=== PATIENT | male | born 1975 | race Caucasian/White ===

== ENCOUNTER 2017-05-26 10:04 | Emergency (ER) | payer SELFPAY ==
[2017-05-26 10:34] LABS: #Basophils 0.1 thou/uL (0.0-0.2); #Eosinphils 0.1 thou/uL (0.0-0.7); #Lymphocytes 0.9 thou/uL (1.20-3.40); #Monocytes 0.6 thou/uL (0.11-0.59); %Basophils 1.1 % (0.0-1.0); %Lymphocytes 13.3 % (21.0-51.0); %Monocytes 9.3 % (0.0-10.0); %Neutrophils 74.3 % (42.0-75.0); Hemoglobin 18.9 g/dL (14.0-18.0); Mean Corpuscular HGB CONC 32.1 g/dL (32.0-36.0); Mean Corpuscular Hemoglobin 30.7 pg (27.0-31.0); Mean Corpuscular Volume 95.4 fl (80.0-94.0); Mean Platelet Volume 7.2 fL (7.4-10.4); Platelet Count 232 thou/uL (130-400); RBC Distribution Width 12.1 % (11.5-14.5); Red Blood Cell (RBC) Count 6.16 mill/uL (4.70-6.10); White Blood Cell (WBC) Count 6.7 thou/uL (4.8-10.8)
[2017-05-26 10:46] LABS: Base Excess-Venous 7.6 mmol/L (-30.0-30.0); Bicarbonate (HCO3v) 35.6 mmol/L (1.0-85.0); CO2 Tension (PvCO2) 56.9 mmHg (41.0-51.0); Calcium, Ionized 1.11 mmol/L (1.12-1.32); Hemoglobin - Calc 21.8 g/dL (12.0-18.0); O2 Tension (PvO2) 35.2 mmHg (35.0-45.0); Potassium 4.3 mmol/L (3.4-4.7); T. Carbon Dioxide 37.3 mmol/L (1.0-85.0); pH (Venous) 7.404 (7.35-7.45); vO2 Saturation-calc 65.9 % (0.0-100.0)
[2017-05-26 10:56] LABS: ALT (SGPT) 25 U/L (8-55); AST (SGOT) 21 U/L (5-34); Albumin 3.3 g/dL (3.5-5.0); Alkaline Phosphatase 133 U/L (40-150); Anion Gap 12 mmol/L (10-20); BUN (Urea Nitrogen) 5 mg/dL (8.9-20.6); Bilirubin, Total 0.7 mg/dL (0.2-1.2); CK (CPK) 50 U/L (30-200); Calc. Creatinine Clearance 0 mL/min (70-130); Calcium 8.8 mg/dL (7.8-10.44); Carbon Dioxide 31 mmol/L (22-29); Chloride 96 mmol/L (98-107); Estimated GFR-MDRD Greater than 90; Globulin 4.6 g/dL (2.4-3.5); Glucose 285 mg/dL (70-105); Lipase 39 U/L (8-78); Magnesium 1.7 mg/dL (1.6-2.6); Phosphorus 2.8 mg/dL (2.3-4.7); Potassium 4.5 mmol/L (3.5-5.1); Protein, Total 7.9 g/dL (6.0-8.3); Sodium 134 mmol/L (136-145)
[2017-05-26 11:05] LABS: CKMB 1.1 ng/mL (0-6.6); Troponin I 0.019 ng/mL (< 0.028)
[2017-05-26 11:28] LABS: Bilirubin Negative (Negative); Blood, Urine Negative (Negative); Clarity CLEAR (Clear); Glucose, Urine (Dipstick) 100 mg/dL (Negative); Leukocyte Negative (Negative); Nitrite Negative (Negative); Protein, Urine (Dipstick) 30 mg/dL (Neg-Trace); Specific Gravity, Urine 1.021 (1.002-1.036)
[2017-05-26 11:31] LABS: Bacteria/HPF None Seen HPF (None Seen); Hyaline Casts/LPF 0-3 HYALINE CAST LPF (0-3 Hyaline); RBC/HPF 0-3 HPF (0-3); Squamous Epithelial None Seen HPF (0-3); WBC/HPF 0-3 HPF (0-3)
== END 2017-05-26 11:53 | disposition home or self-care (01) ==
LOC: ERS 10:04
DX: E11.65 Type 2 diabetes mellitus with hyperglycemia (principal); F17.210 Nicotine dependence, cigarettes, uncomplicated; Z79.84 Long term (current) use of oral hypoglycemic drugs
CPT/HCPCS: 36415; 36416; 80053; 81003; 81015; 82010; 82330; 82553; 82803; 83690; 83735; 84100; 84484; 85025; 93005; 96360

== ENCOUNTER 2017-11-22 22:26 | Inpatient (IN) | payer SELFPAY ==
[~2017-11-22 22:26] MED LIST: ISOVUE-370 76%-LOCM 1 ML ONE
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
[2017-11-22 22:59] LABS: #Eosinphils 0.3 thou/uL (0.0-0.7); #Lymphocytes 2.4 thou/uL (1.20-3.40); #Monocytes 0.7 thou/uL (0.11-0.59); #Neutrophils 6.7 thou/uL (1.40-6.50); %Basophils 0.3 % (0.0-1.0); %Eosinophils 2.8 % (0.0-10.0); %Lymphocytes 23.6 % (21.0-51.0); %Monocytes 7.3 % (0.0-10.0); Hemoglobin 19.4 g/dL (14.0-18.0); Mean Corpuscular HGB CONC 33.4 g/dL (32.0-36.0); Mean Corpuscular Hemoglobin 31.5 pg (27.0-31.0); Mean Corpuscular Volume 94.4 fL (78.0-98.0); Mean Platelet Volume 6.7 fL (7.4-10.4); Platelet Count 251 thou/uL (130-400); RBC Distribution Width 12.8 % (11.5-14.5); Red Blood Cell (RBC) Count 6.17 mill/uL (4.70-6.10); White Blood Cell (WBC) Count 10.1 thou/uL (4.8-10.8)
[2017-11-22 23:20] LABS: ALT (SGPT) 48 U/L (8-55); AST (SGOT) 92 U/L (5-34); Albumin 3.5 g/dL (3.5-5.0); Alcohol 221 mg/dL (Less than 10); Alkaline Phosphatase 125 U/L (40-150); Anion Gap 17 mmol/L (10-20); BUN (Urea Nitrogen) 5 mg/dL (8.9-20.6); Bilirubin, Total 0.6 mg/dL (0.2-1.2); Calc. Creatinine Clearance 0 mL/min (70-130); Calcium 8.4 mg/dL (7.8-10.44); Carbon Dioxide 24 mmol/L (22-29); Chloride 97 mmol/L (98-107); Estimated GFR-MDRD Greater than 90; Globulin 4.7 g/dL (2.4-3.5); Glucose 215 mg/dL (70-105); Potassium 4.5 mmol/L (3.5-5.1); Protein, Total 8.2 g/dL (6.0-8.3); Sodium 133 mmol/L (136-145)
[2017-11-22 23:21] LABS: pH, Arterial 7.27 (7.35-7.45)
[2017-11-22 23:22] LABS: Base Excess (BEa) 0.5 mEq/L (-2.0 to +3.0); Hematocrit-ABG 63.5 % (42.0-52.0); Hemoglobin (Hb) 18.6 g/dL (14.0-18.0)
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
[2017-11-22 23:23] LABS: Analyzer IN Cardio ER; Calcium, Ionized 1.1 mmol/L (1.12-1.30); Puncture Site RRA
[2017-11-22] MEDS ORDERED: CEFAZOLIN/Water 2 GM/20 ML SYRINGE SLOW IVP SCH (23:30)
[2017-11-22 23:33] LABS: Bilirubin Negative (Negative); Blood, Urine Moderate (Negative); Clarity CLEAR (Clear); Glucose, Urine (Dipstick) Negative (Negative); Leukocyte Negative (Negative); Nitrite Negative (Negative); Protein, Urine (Dipstick) 300 mg/dL (Neg-Trace); Specific Gravity, Urine 1.017 (1.002-1.036); Urobilinogen 0.2 mg/dL (0.2-1.0)
[2017-11-22 23:34] LABS: Bacteria/HPF None Seen HPF (None Seen); Hyaline Casts/LPF 4-6 HYALINE CAST LPF (0-3 Hyaline); Pathc Cast-AUWi Flag 0.43 (0-2.49); RBC/HPF 0-3 HPF (0-3); Squamous Epithelial 0-3 HPF (0-3)
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
[2017-11-22 23:42] LABS: Renal Epithelial None Seen HPF (0-3); Transitional Epithelial NONE SEEN HPF (0-3)
[2017-11-22] MEDS ORDERED: Adacel (T-DAP) 0.5 ML VIAL ONE (23:43)
[2017-11-22] MEDS ORDERED: methylPREDNISolone Sod Succ/PF 125 MG/2 ML VIAL ONE (23:44)
[2017-11-23] MEDS ORDERED: HumaLOG 300 UNITS/3 ML VIAL SC PRN (00:08)
[2017-11-23] MEDS ORDERED: Ondansetron HCl/PF 4 MG/2 ML Vial IVP PRN (00:08)
[2017-11-23] MEDS ORDERED: Ondansetron ODT 4 MG TAB PO PRN (00:08)
[2017-11-23] MEDS ORDERED: Dextrose 5% in Water 1,000 ML IV PRN (00:08)
[2017-11-23] MEDS ORDERED: Dextrose 50% Abboject 50 ML SYRINGE SLOW IVP PRN (00:08)
[2017-11-23 00:18] LABS: Acetaminophen Less than 6.0 mcg/mL (10.0-30.0); Alcohol 221 mg/dL (Less than 10); Salicylate Less than 8.0 mg/dL (15.0-30.0)
[2017-11-23] MEDS ORDERED: Albuterol Sulfate 2.5 mg/3 ml Neb ONE ×4 (00:19→00:20)
[2017-11-23] MEDS ORDERED: Albuterol Sulfate 2.5 mg/0.5 ml Neb ONE ×2 (00:20)
[2017-11-23] MEDS ORDERED: Acetaminophen 500 MG TAB PO SCH (00:30)
[2017-11-23] MEDS ORDERED: cefTRIAXone\\ROCEPHIN 2 GM in Sodium Chloride 0.9% 100 ML IVPB SCH (01:00)
[2017-11-23 01:56] LABS: Actual Bicarbonate (HCO3a) 23.8 mEq/L (22-28); CO2 Tension 57.4 mmHg (35.0-45.0); O2 Tension (PaO2) 104.6 mmHg (80.0-100.0); pH, Arterial 7.23 (7.35-7.45)
[2017-11-23 01:57] LABS: Calcium, Ionized 1.1 mmol/L (1.12-1.30); Hemoglobin (Hb) 19.5 g/dL (14.0-18.0); Puncture Site LRA
[2017-11-23] MEDS: Sodium Chloride 0.9% 1,000 ML IV SCH ×4 (02:39→23:54)
[2017-11-23] MEDS: Oxazepam 10 MG CAP PO SCH ×2 (02:39→09:00)
[2017-11-23 05:29] LABS: #Basophils 0.1 thou/uL (0.0-0.2); #Lymphocytes 0.2 thou/uL (1.20-3.40); #Monocytes 0.2 thou/uL (0.11-0.59); #Neutrophils 9.7 thou/uL (1.40-6.50); %Basophils 0.8 % (0.0-1.0); %Eosinophils 0.1 % (0.0-10.0); %Lymphocytes 2.3 % (21.0-51.0); %Monocytes 1.9 % (0.0-10.0); %Neutrophils 94.9 % (42.0-75.0); Mean Corpuscular HGB CONC 31.7 g/dL (32.0-36.0); Mean Corpuscular Hemoglobin 30.1 pg (27.0-31.0); Mean Platelet Volume 6.8 fL (7.4-10.4); Platelet Count 203 thou/uL (130-400); Red Blood Cell (RBC) Count 5.97 mill/uL (4.70-6.10); White Blood Cell (WBC) Count 10.2 thou/uL (4.8-10.8)
[2017-11-23 05:57] LABS: Anion Gap 18 mmol/L (10-20); BUN (Urea Nitrogen) 5 mg/dL (8.9-20.6); Calc. Creatinine Clearance 215 mL/min (70-130); Calcium 8.1 mg/dL (7.8-10.44); Carbon Dioxide 22 mmol/L (22-29); Chloride 98 mmol/L (98-107); Estimated GFR-MDRD Greater than 90; Glucose 380 mg/dL (70-105); Potassium 4.1 mmol/L (3.5-5.1); Sodium 134 mmol/L (136-145)
[2017-11-23] MEDS: Acetaminophen 500 MG TAB PO SCH ×4 (06:16→23:55)
[2017-11-23] MEDS: Ketorolac Tromethamine 30 MG/ML VIAL IVP SCH ×4 (06:16→23:54)
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
[2017-11-23] MEDS ORDERED: CEFAZOLIN/Water 2 GM/20 ML SYRINGE SLOW IVP SCH (09:00)
[2017-11-23] MEDS: Multivit, Therapeutic 1 TAB PO SCH (09:00)
[2017-11-23] MEDS: Folic Acid 1 MG TAB PO SCH (09:00)
[2017-11-23] MEDS: Famotidine/PF 20 mg/2ml Vial SLOW IVP SCH ×3 (09:00→20:28)
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
[2017-11-23] MEDS ORDERED: Fentanyl 250 MCG/5 ML VIAL ONE (11:20)
[2017-11-23] MEDS ORDERED: Lidocaine 1% PF 5 ML VIAL ONE (12:46)
[2017-11-23] MEDS ORDERED: PROPOFOL 200 MG/20 ML VIAL ONE (12:46)
[2017-11-23] MEDS ORDERED: Ondansetron HCl/PF 4 MG/2 ML Vial ONE (12:46)
[2017-11-23 13:36] LABS: Actual Bicarbonate (HCO3a) 28.8 mEq/L (22-28); Base Excess (BEa) -0.9 mEq/L (-2.0 to +3.0); CO2 Tension 67.9 mmHg (35.0-45.0); Hemoglobin (Hb) 18.8 g/dL (14.0-18.0); O2 Tension (PaO2) 65.6 mmHg (80.0-100.0); pH, Arterial 7.25 (7.35-7.45)
[2017-11-23 13:37] LABS: Calcium, Ionized 1.1 mmol/L (1.12-1.30); Puncture Site LBA
[2017-11-23 13:38] LABS: ALV-art Gradient 206.025 (0-20)
[2017-11-23] MEDS ORDERED: Magnesium 2 GM/NS 0.9% 50 ML 2 GM in Premix Bag 1 BAG IVPB SCH (14:00)
[2017-11-23] MEDS ORDERED: Magnesium Sulfate 2 GM, Admixture Fee 1 EACH in Sodium Chloride 0.9% 100 ML IVPB SCH (14:00)
[2017-11-23] MEDS ORDERED: Albuterol Sulfate 2.5 mg/3 ml Neb NEB SCH (15:00)
[2017-11-23 15:03] LABS: Actual Bicarbonate (HCO3a) 30.3 mEq/L (22-28); Base Excess (BEa) -0.2 mEq/L (-2.0 to +3.0); CO2 Tension 73.6 mmHg (35.0-45.0); O2 Tension (PaO2) 74.8 mmHg (80.0-100.0); pH, Arterial 7.23 (7.35-7.45)
[2017-11-23 15:04] LABS: Calcium, Ionized 1.1 mmol/L (1.12-1.30); Hemoglobin (Hb) 18.4 g/dL (14.0-18.0); Puncture Site LRA
[2017-11-23] MEDS: HumaLOG 300 UNITS/3 ML VIAL SC PRN ×2 (15:08→19:40)
[2017-11-23] MEDS ORDERED: Propofol 1,000 MG/100 ML VIAL IV PRN (15:11)
[2017-11-23] MEDS ORDERED: Fentanyl 100 MCG/2 ML VIAL SLOW IVP PRN (15:12)
[2017-11-23] MEDS ORDERED: fentaNYL Citrate/PF 2,000 MCG in Sodium Chloride 0.9% 60 ML IV SCH (15:43)
[2017-11-23] MEDS ORDERED: Propofol BOLUS 1,000 MG/100 ML VIAL IV PRN (15:43)
[2017-11-23] MEDS ORDERED: Fentanyl BOLUS 250 ML IVPB PRN (15:43)
[2017-11-23] MEDS ORDERED: DISCONTINUE PREVIOUS NARCOTIC PAIN MEDICATIONS AND BENZODIAZEPINES FS SCH (15:43)
[2017-11-23] MEDS ORDERED: Lorazepam 2 MG/ML VIAL SLOW IVP PRN (15:43)
[2017-11-23] MEDS ORDERED: Furosemide 40 MG/4 ML VIAL SLOW IVP SCH (16:15)
[2017-11-23] MEDS: Propofol 1,000 MG/100 ML VIAL IV PRN ×3 (16:46→23:57)
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
[2017-11-23] MEDS: Mometasone/Formoterol 120 PUFF INHALER INH SCH (18:40)
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
[2017-11-23] MEDS: Insulin Glargine 10 UNITS in Pre-Filled Syringe 1 EACH SC SCH (20:28)
[2017-11-23] MEDS: CEFAZOLIN/Water 2 GM/20 ML SYRINGE SLOW IVP SCH (20:28)
[2017-11-24] MEDS: HumaLOG 300 UNITS/3 ML VIAL SC PRN ×4 (00:21→18:42)
[2017-11-24] MEDS: Propofol 1,000 MG/100 ML VIAL IV PRN ×2 (03:12→06:35)
[2017-11-24] MEDS: CEFAZOLIN/Water 2 GM/20 ML SYRINGE SLOW IVP SCH ×2 (03:13→12:24)
[2017-11-24 05:09] LABS: Anion Gap 14 mmol/L (10-20); BUN (Urea Nitrogen) 19 mg/dL (8.9-20.6); Calc. Creatinine Clearance 201 mL/min (70-130); Calcium 7.7 mg/dL (7.8-10.44); Carbon Dioxide 25 mmol/L (22-29); Chloride 100 mmol/L (98-107); Estimated GFR-MDRD 89; Glucose 343 mg/dL (70-105); Magnesium 2.5 mg/dL (1.6-2.6); Phosphorus 2.1 mg/dL (2.3-4.7); Potassium 4.2 mmol/L (3.5-5.1); Sodium 135 mmol/L (136-145)
[2017-11-24] MEDS: Ketorolac Tromethamine 30 MG/ML VIAL IVP SCH ×3 (06:35→18:41)
[2017-11-24] MEDS: Acetaminophen 500 MG TAB PO SCH ×3 (06:36→18:40)
[2017-11-24] MEDS: Mometasone/Formoterol 120 PUFF INHALER INH SCH ×2 (07:09→18:47)
[2017-11-24 07:25] LABS: Actual Bicarbonate (HCO3a) 28.1 mEq/L (22-28); Base Excess (BEa) 3.1 mEq/L (-2.0 to +3.0); CO2 Tension 44.1 mmHg (35.0-45.0); Hemoglobin (Hb) 16.8 g/dL (14.0-18.0); O2 Tension (PaO2) 56.4 mmHg (80.0-100.0); pH, Arterial 7.42 (7.35-7.45)
[2017-11-24 07:26] LABS: ALV-art Gradient 351.925 (0-20); Calcium, Ionized 1.1 mmol/L (1.12-1.30); Puncture Site RRA
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
[2017-11-24] MEDS: Multivit, Therapeutic 1 TAB PO SCH (09:57)
[2017-11-24] MEDS: Folic Acid 1 MG TAB PO SCH (09:57)
[2017-11-24] MEDS: Sodium Chloride 0.9% 1,000 ML IV SCH (09:58)
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
[2017-11-24] MEDS: Famotidine/PF 20 mg/2ml Vial SLOW IVP SCH ×2 (12:19→21:40)
[2017-11-24] MEDS: Insulin Glargine 10 UNITS in Pre-Filled Syringe 1 EACH SC SCH (21:40)
[2017-11-24] MEDS: Oxazepam 10 MG CAP PO SCH (21:40)
[2017-11-25] MEDS: Ketorolac Tromethamine 30 MG/ML VIAL IVP SCH ×4 (00:17→18:05)
[2017-11-25] MEDS: Acetaminophen 500 MG TAB PO SCH ×4 (00:17→18:05)
[2017-11-25] MEDS: HumaLOG 300 UNITS/3 ML VIAL SC PRN ×5 (00:45→21:30)
[2017-11-25] MEDS: Oxazepam 10 MG CAP PO SCH ×3 (05:40→21:29)
[2017-11-25] MEDS: Mometasone/Formoterol 120 PUFF INHALER INH SCH ×2 (07:48→19:10)
[2017-11-25] MEDS ORDERED: methylPREDNISolone 4 mg Tablet PO SCH (08:15)
[2017-11-25] MEDS: Famotidine/PF 20 mg/2ml Vial SLOW IVP SCH ×2 (10:02→21:30)
[2017-11-25] MEDS: Multivit, Therapeutic 1 TAB PO SCH (10:03)
[2017-11-25] MEDS: Folic Acid 1 MG TAB PO SCH (10:03)
[2017-11-25] MEDS: Insulin Glargine 10 UNITS in Pre-Filled Syringe 1 EACH SC SCH ×2 (10:05→21:29)
[2017-11-25] MEDS: traMADol HCl 50 MG TAB PO PRN (11:45)
[2017-11-25] MEDS: methylPREDNISolone 4 mg Tablet PO SCH ×3 (12:30→21:29)
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
[2017-11-25] MEDS: Enoxaparin Sodium 30 MG/0.3 ML SYRINGE SC SCH (21:30)
[2017-11-26 05:24] LABS: #Lymphocytes 0.9 thou/uL (1.20-3.40); #Monocytes 0.8 thou/uL (0.11-0.59); %Eosinophils 0.2 % (0.0-10.0); %Lymphocytes 8.5 % (21.0-51.0); %Monocytes 7.5 % (0.0-10.0); %Neutrophils 83.7 % (42.0-75.0); Hemoglobin 16.3 g/dL (14.0-18.0); Mean Corpuscular HGB CONC 31.7 g/dL (32.0-36.0); Mean Corpuscular Hemoglobin 30.6 pg (27.0-31.0); Mean Corpuscular Volume 96.7 fL (78.0-98.0); Mean Platelet Volume 7.2 fL (7.4-10.4); Platelet Count 168 thou/uL (130-400); RBC Distribution Width 13.1 % (11.5-14.5); Red Blood Cell (RBC) Count 5.33 mill/uL (4.70-6.10); White Blood Cell (WBC) Count 10.7 thou/uL (4.8-10.8)
[2017-11-26 05:44] LABS: Anion Gap 11 mmol/L (10-20); BUN (Urea Nitrogen) 26 mg/dL (8.9-20.6); Calc. Creatinine Clearance 258 mL/min (70-130); Calcium 8.4 mg/dL (7.8-10.44); Carbon Dioxide 31 mmol/L (22-29); Chloride 98 mmol/L (98-107); Estimated GFR-MDRD Greater than 90; Glucose 189 mg/dL (70-105); Magnesium 2.4 mg/dL (1.6-2.6); Phosphorus 3.6 mg/dL (2.3-4.7); Potassium 4.6 mmol/L (3.5-5.1); Sodium 135 mmol/L (136-145)
[2017-11-26] MEDS: Acetaminophen 500 MG TAB PO SCH ×4 (06:10→18:13)
[2017-11-26] MEDS: Ketorolac Tromethamine 30 MG/ML VIAL IVP SCH ×2 (06:10)
[2017-11-26] MEDS: HumaLOG 300 UNITS/3 ML VIAL SC PRN ×4 (06:11→21:11)
[2017-11-26] MEDS: Oxazepam 10 MG CAP PO SCH ×3 (06:11→21:10)
[2017-11-26] MEDS: Mometasone/Formoterol 120 PUFF INHALER INH SCH ×2 (07:49→18:30)
[2017-11-26] MEDS: Enoxaparin Sodium 30 MG/0.3 ML SYRINGE SC SCH ×2 (09:34→21:09)
[2017-11-26] MEDS: Famotidine/PF 20 mg/2ml Vial SLOW IVP SCH (09:35)
[2017-11-26] MEDS: Folic Acid 1 MG TAB PO SCH (09:35)
[2017-11-26] MEDS: Multivit, Therapeutic 1 TAB PO SCH (09:35)
[2017-11-26] MEDS: methylPREDNISolone 4 mg Tablet PO SCH ×3 (10:19→18:14)
[2017-11-26] MEDS: traMADol HCl 50 MG TAB PO PRN (10:19)
[2017-11-26] MEDS: Insulin Glargine 10 UNITS in Pre-Filled Syringe 1 EACH SC SCH ×2 (10:19→21:10)
[2017-11-26] MEDS ORDERED: Polyethylene Glycol 3350 17 GM Packet PO SCH (11:30)
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
[2017-11-26] MEDS: Ibuprofen 800 MG TAB PO SCH ×2 (13:10→18:18)
[2017-11-26] MEDS ORDERED: methylPREDNISolone 4 mg Tablet PO SCH (21:00)
[2017-11-26] MEDS: Senokot S 8.6-50 MG TAB PO SCH (21:10)
[2017-11-26] MEDS: Famotidine 20 MG TAB PO SCH (21:10)
[2017-11-27] MEDS: Acetaminophen 500 MG TAB PO SCH ×4 (00:11→17:56)
[2017-11-27] MEDS: Ibuprofen 800 MG TAB PO SCH ×3 (04:59→18:40)
[2017-11-27] MEDS: traMADol HCl 50 MG TAB PO PRN ×2 (05:02→15:18)
[2017-11-27] MEDS: Oxazepam 10 MG CAP PO SCH ×2 (05:03→15:18)
[2017-11-27] MEDS: HumaLOG 300 UNITS/3 ML VIAL SC PRN ×2 (06:29→18:00)
[2017-11-27] MEDS: Mometasone/Formoterol 120 PUFF INHALER INH SCH ×2 (07:01→18:37)
[2017-11-27] MEDS: Famotidine 20 MG TAB PO SCH ×2 (09:43→21:33)
[2017-11-27] MEDS: Polyethylene Glycol 3350 17 GM Packet PO SCH (09:43)
[2017-11-27] MEDS: methylPREDNISolone 4 mg Tablet PO SCH ×4 (09:44→21:33)
[2017-11-27] MEDS: Senokot S 8.6-50 MG TAB PO SCH ×2 (09:44→21:33)
[2017-11-27] MEDS: Insulin Glargine 10 UNITS in Pre-Filled Syringe 1 EACH SC SCH ×2 (09:44→21:32)
[2017-11-27] MEDS: Enoxaparin Sodium 30 MG/0.3 ML SYRINGE SC SCH ×2 (09:44→21:32)
[2017-11-27] MEDS: Multivit, Therapeutic 1 TAB PO SCH (09:44)
[2017-11-27] MEDS: Folic Acid 1 MG TAB PO SCH (09:44)
[2017-11-27] MEDS ORDERED: guaiFENesin ER 600 MG TAB PO SCH (11:45)
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
[2017-11-27] MEDS: guaiFENesin ER 600 MG TAB PO SCH (21:33)
[2017-11-28] MEDS: Oxazepam 10 MG CAP PO SCH ×4 (00:48→17:15)
[2017-11-28] MEDS: Acetaminophen 500 MG TAB PO SCH ×4 (00:48→17:15)
[2017-11-28] MEDS: traMADol HCl 50 MG TAB PO PRN ×2 (00:54→09:04)
[2017-11-28] MEDS: Ibuprofen 800 MG TAB PO SCH ×3 (03:46→18:17)
[2017-11-28] MEDS: Mometasone/Formoterol 120 PUFF INHALER INH SCH ×2 (06:50→18:32)
[2017-11-28] MEDS: Enoxaparin Sodium 30 MG/0.3 ML SYRINGE SC SCH ×2 (09:01→21:07)
[2017-11-28] MEDS: Senokot S 8.6-50 MG TAB PO SCH ×2 (09:01→21:03)
[2017-11-28] MEDS: Folic Acid 1 MG TAB PO SCH (09:01)
[2017-11-28] MEDS: Multivit, Therapeutic 1 TAB PO SCH (09:01)
[2017-11-28] MEDS: methylPREDNISolone 4 mg Tablet PO SCH ×3 (09:01→17:29)
[2017-11-28] MEDS: Polyethylene Glycol 3350 17 GM Packet PO SCH (09:02)
[2017-11-28] MEDS: Insulin Glargine 10 UNITS in Pre-Filled Syringe 1 EACH SC SCH ×2 (09:02→21:02)
[2017-11-28] MEDS: Famotidine 20 MG TAB PO SCH ×2 (09:02→21:03)
[2017-11-28] MEDS: guaiFENesin ER 600 MG TAB PO SCH ×2 (09:02→21:03)
[2017-11-28] MEDS ORDERED: Furosemide 40 MG TAB PO SCH (10:00)
[2017-11-28 10:52] VITALS: BMI 43.2
[2017-11-28] MEDS: HumaLOG 300 UNITS/3 ML VIAL SC PRN ×2 (11:01→21:02)
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
[2017-11-29] MEDS: Acetaminophen 500 MG TAB PO SCH ×4 (00:14→11:48)
[2017-11-29] MEDS: Oxazepam 10 MG CAP PO SCH ×2 (00:14→09:02)
[2017-11-29] MEDS: Ibuprofen 800 MG TAB PO SCH ×2 (03:05→11:48)
[2017-11-29 05:39] LABS: #Eosinphils 0.3 thou/uL (0.0-0.7); #Lymphocytes 1.1 thou/uL (1.20-3.40); #Monocytes 1.2 thou/uL (0.11-0.59); #Neutrophils 6.5 thou/uL (1.40-6.50); %Basophils 0.2 % (0.0-1.0); %Eosinophils 3.1 % (0.0-10.0); %Lymphocytes 12.1 % (21.0-51.0); %Monocytes 12.7 % (0.0-10.0); Hemoglobin 17.1 g/dL (14.0-18.0); Mean Corpuscular HGB CONC 32.7 g/dL (32.0-36.0); Mean Corpuscular Hemoglobin 31.1 pg (27.0-31.0); Mean Corpuscular Volume 95.1 fL (78.0-98.0); Mean Platelet Volume 6.8 fL (7.4-10.4); Platelet Count 210 thou/uL (130-400); RBC Distribution Width 12.7 % (11.5-14.5); Red Blood Cell (RBC) Count 5.51 mill/uL (4.70-6.10); White Blood Cell (WBC) Count 9.1 thou/uL (4.8-10.8)
[2017-11-29 05:48] LABS: Anion Gap 12 mmol/L (10-20); BUN (Urea Nitrogen) 13 mg/dL (8.9-20.6); Calc. Creatinine Clearance 299 mL/min (70-130); Calcium 9.7 mg/dL (7.8-10.44); Carbon Dioxide 33 mmol/L (22-29); Chloride 95 mmol/L (98-107); Estimated GFR-MDRD Greater than 90; Glucose 172 mg/dL (70-105); Magnesium 1.9 mg/dL (1.6-2.6); Sodium 136 mmol/L (136-145)
[2017-11-29] MEDS: HumaLOG 300 UNITS/3 ML VIAL SC PRN ×2 (06:12→11:49)
[2017-11-29] MEDS: traMADol HCl 50 MG TAB PO PRN (06:16)
[2017-11-29] MEDS ORDERED: methylPREDNISolone 4 mg Tablet PO SCH (08:00)
[2017-11-29] MEDS: Mometasone/Formoterol 120 PUFF INHALER INH SCH (08:31)
[2017-11-29] MEDS ORDERED: Furosemide 40 MG TAB PO SCH (09:00)
[2017-11-29] MEDS ORDERED: Magnesium Citrate 300 ML BOT PO SCH (09:00)
[2017-11-29] MEDS: Enoxaparin Sodium 30 MG/0.3 ML SYRINGE SC SCH (09:02)
[2017-11-29] MEDS: Famotidine 20 MG TAB PO SCH (09:03)
[2017-11-29] MEDS: Folic Acid 1 MG TAB PO SCH (09:03)
[2017-11-29] MEDS: guaiFENesin ER 600 MG TAB PO SCH (09:03)
[2017-11-29] MEDS: Multivit, Therapeutic 1 TAB PO SCH (09:03)
[2017-11-29] MEDS: Polyethylene Glycol 3350 17 GM Packet PO SCH (09:04)
[2017-11-29] MEDS: Senokot S 8.6-50 MG TAB PO SCH (09:04)
[2017-11-29] MEDS: Insulin Glargine 10 UNITS in Pre-Filled Syringe 1 EACH SC SCH (09:05)
[2017-11-29 11:37] VITALS: BP 127/81; TEMP 98.4
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
[2017-11-30] MEDS ORDERED: Spironolactone 25 MG TAB PO SCH (08:00)
[2017-11-30] MEDS ORDERED: methylPREDNISolone 4 mg Tablet PO SCH (08:00)
== END 2017-11-29 14:30 | disposition home or self-care (01) | DRG 570 ==
LOC: ERS 22:26 → CCU 11-23 01:43 → SJJU 11-24 22:45
PROVIDERS: ADMIT Surgery; ATTEND Surgery
PROC: 0JBN0ZZ Excision of Right Lower Leg Subcutaneous Tissue and Fascia, Open Approach (ICD-10-PCS; principal; 2017-11-23)
PROC: 0HQEXZZ Repair Left Lower Arm Skin, External Approach (ICD-10-PCS; 2017-11-23)
PROC: 2W1LX6Z Compression of Right Lower Extremity using Pressure Dressing (ICD-10-PCS; 2017-11-23)
DX: S81.811A Laceration without foreign body, right lower leg, initial encounter (principal); J96.02 Acute respiratory failure with hypercapnia; J96.01 Acute respiratory failure with hypoxia; Z68.41 Body mass index [BMI] 40.0-44.9, adult; J44.1 Chronic obstructive pulmonary disease with (acute) exacerbation; S61.532A Puncture wound without foreign body of left wrist, initial encounter; V43.52XA Car driver injured in collision with other type car in traffic accident, initial encounter; Y92.410 Unspecified street and highway as the place of occurrence of the external cause; R91.8 Other nonspecific abnormal finding of lung field; R59.9 Enlarged lymph nodes, unspecified; F17.210 Nicotine dependence, cigarettes, uncomplicated; S91.119A Laceration without foreign body of unspecified toe without damage to nail, initial encounter; F10.129 Alcohol abuse with intoxication, unspecified; E11.65 Type 2 diabetes mellitus with hyperglycemia; E66.01 Morbid (severe) obesity due to excess calories; Z79.84 Long term (current) use of oral hypoglycemic drugs; Z90.49 Acquired absence of other specified parts of digestive tract
CPT/HCPCS: 36415; 36416; 70450; 71045; 71260; 72125; 74177; 80048; 80053; 80307; 81003; 81015; 82805; 83735; 83880; 84100; 85025; 86850; 86900; 86901; 90471; 90715; 94002; 94003; 94640; 94660; 94760; 96374; 96375; A4216; G0390; G8978-GP-CJ; G8979-GP-CH; J0696; J1650; J1885; J1940; J2001; J2270; J2405; J2704; J2920; J2930; J3010; J3475; J7050; J7611; J7620; S0028

== ENCOUNTER 2018-03-02 14:14 | Emergency (ER) | payer OTHER, SELFPAY ==
[2018-03-02] MEDS ORDERED: Ibuprofen 800 MG TAB ONE (14:32)
--- NOTE | 2018-03-02 15:16 | RAD ---
RIGHT KNEE 4 VIEWS: HISTORY: Right knee pain. FINDINGS/IMPRESSION: No fracture, dislocation, or bony destruction is seen. No significant osteophytosis is noted. POS: [facility]
== END 2018-03-02 15:18 | disposition home or self-care (01) ==
LOC: ERS 14:14
DX: M25.561 Pain in right knee (principal); F17.210 Nicotine dependence, cigarettes, uncomplicated; E11.9 Type 2 diabetes mellitus without complications

== ENCOUNTER 2018-11-10 11:27 | Emergency (ER) | payer SELFPAY ==
[2018-11-10] MEDS ORDERED: Furosemide 40 MG/4 ML VIAL ONE (11:52)
[2018-11-10 12:12] LABS: #Eosinphils 0.2 thou/uL (0.0-0.7); #Lymphocytes 0.9 thou/uL (1.20-3.40); #Monocytes 0.7 thou/uL (0.11-0.59); #Neutrophils 4.4 thou/uL (1.40-6.50); %Basophils 0.3 % (0.0-1.0); %Eosinophils 2.6 % (0.0-10.0); %Lymphocytes 13.8 % (21.0-51.0); %Monocytes 11.9 % (0.0-10.0); %Neutrophils 71.5 % (42.0-75.0); Hemoglobin 17.3 g/dL (14.0-18.0); Mean Corpuscular HGB CONC 30.1 g/dL (32.0-36.0); Mean Corpuscular Hemoglobin 27.5 pg (27.0-31.0); Mean Corpuscular Volume 91.5 fL (78.0-98.0); Mean Platelet Volume 7.5 fL (7.4-10.4); Platelet Count 248 thou/uL (130-400); RBC Distribution Width 15.1 % (11.5-14.5); Red Blood Cell (RBC) Count 6.28 mill/uL (4.70-6.10); White Blood Cell (WBC) Count 6.1 thou/uL (4.8-10.8)
--- NOTE | 2018-11-10 12:14 | RAD ---
EXAM: Single view of the chest HISTORY: Bilateral leg swelling COMPARISON: 11/23/2017 FINDINGS: Single view of the chest shows an enlarged but stable cardiomediastinal silhouette. There i s no evidence of consolidation, mass, or pleural effusion. The bones are unremarkable. IMPRESSION: Cardiomegaly without evidence of acute cardiopulmonary disease
[2018-11-10 12:37] LABS: ALT (SGPT) 16 U/L (8-55); AST (SGOT) 29 U/L (5-34); Albumin 3.6 g/dL (3.5-5.0); Alkaline Phosphatase 149 U/L (40-150); Anion Gap 16 mmol/L (10-20); BUN (Urea Nitrogen) 8 mg/dL (8.9-20.6); Bilirubin, Total 0.8 mg/dL (0.2-1.2); Calc. Creatinine Clearance 0 mL/min (70-130); Carbon Dioxide 27 mmol/L (22-29); Chloride 100 mmol/L (98-107); Estimated GFR-MDRD Greater than 90; Globulin 4.6 g/dL (2.4-3.5); Glucose 182 mg/dL (70-105); Protein, Total 8.2 g/dL (6.0-8.3); Sodium 138 mmol/L (136-145)
== END 2018-11-10 13:11 | disposition home or self-care (01) ==
LOC: ERS 11:27
DX: R60.0 Localized edema (principal); R06.2 Wheezing; E11.9 Type 2 diabetes mellitus without complications; F17.210 Nicotine dependence, cigarettes, uncomplicated; Z79.84 Long term (current) use of oral hypoglycemic drugs
CPT/HCPCS: 71045; 80053; 83880; 84484; 85025; 93005; 94640; 96374; J1940; J7620

== ENCOUNTER 2021-04-22 12:41 | Observation (INO) | payer SELFPAY ==
[2021-04-22 14:18] LABS: #Eosinphils 0.1 thou/uL (0.0-0.7); #Lymphocytes 0.7 thou/uL (1.20-3.40); #Monocytes 0.7 thou/uL (0.11-0.59); #Neutrophils 4.2 thou/uL (1.40-6.50); %Basophils 0.2 % (0.0-1.0); %Eosinophils 2.2 % (0.0-10.0); %Monocytes 11.9 % (0.0-10.0); %Neutrophils 72.8 % (42.0-75.0); Hemoglobin 17.3 g/dL (14.0-18.0); Mean Corpuscular HGB CONC 32.9 g/dL (32.0-36.0); Mean Corpuscular Hemoglobin 31.5 pg (27.0-31.0); Mean Corpuscular Volume 95.9 fL (78.0-98.0); Mean Platelet Volume 6.9 fL (7.4-10.4); Platelet Count 202 thou/uL (130-400); RBC Distribution Width 12.5 % (11.5-14.5); Red Blood Cell (RBC) Count 5.49 mill/uL (4.70-6.10); White Blood Cell (WBC) Count 5.7 thou/uL (4.8-10.8)
[2021-04-22] MEDS ORDERED: Furosemide 20 MG/2 ML VIAL ONE (14:39)
[2021-04-22 14:40] LABS: ALT (SGPT) 29 U/L (8-55); AST (SGOT) 37 U/L (5-34); Albumin 3.5 g/dL (3.5-5.0); Alkaline Phosphatase 148 U/L (40-110); Anion Gap 12 mmol/L (10-20); BUN (Urea Nitrogen) 7 mg/dL (8.9-20.6); Bilirubin, Total 1.2 mg/dL (0.2-1.2); Calc. Creatinine Clearance 0 mL/min (70-130); Carbon Dioxide 31 mmol/L (22-29); Chloride 97 mmol/L (98-107); Globulin 4.7 g/dL (2.4-3.5); Glucose 153 mg/dL (70-105); Potassium 4.8 mmol/L (3.5-5.1); Protein, Total 8.2 g/dL (6.0-8.3); Sodium 135 mmol/L (136-145)
[2021-04-22 15:03] LABS: CKMB 1.3 ng/mL (0-6.6)
[2021-04-22] MEDS ORDERED: Aspirin 325 MG TAB ONE (16:22)
[2021-04-22] MEDS ORDERED: Nitroglycerin 2% Ointment 1 INCH/1 GM Packet ONE (16:22)
[2021-04-22 17:20] LABS: Troponin I 0.026 ng/mL (< 0.028)
[2021-04-22 18:35] VITALS: BMI 53.8
[2021-04-22] MEDS ORDERED: Dextrose 50% Abboject 50 ML SYRINGE SLOW IVP PRN (18:39)
[2021-04-22] MEDS ORDERED: Dextrose 5% in Water 1,000 ML IV PRN (18:39)
[2021-04-22] MEDS ORDERED: HumaLOG 300 UNITS/3 ML VIAL SC PRN ×2 (18:39)
[2021-04-22] MEDS ORDERED: Electrolyte Replacement Protocol FS PRN (18:45)
[2021-04-22] MEDS ORDERED: Magnesium 2 GM/50 ML 2 GM in Premix Bag 1 BAG IVPB SCH (18:45)
[2021-04-22] MEDS ORDERED: Electrolyte Replacement Protocol 1 EACH FS SCH (18:45)
[2021-04-22] MEDS ORDERED: Labetalol HCl 100 MG/20 ML VIAL SLOW IVP PRN (19:48)
[2021-04-22] MEDS ORDERED: Albuterol Sulfate 2.5 mg/3 ml Neb NEB PRN (19:49)
[2021-04-22] MEDS ORDERED: Lisinopril 5 MG TAB PO SCH (21:00)
[2021-04-23 05:08] LABS: INR-International Normal Ratio 1.2; Prothrombin Time 15.6 sec (12.0-14.7)
[2021-04-23 05:10] LABS: Anion Gap 10 mmol/L (10-20); BUN (Urea Nitrogen) 9 mg/dL (8.9-20.6); Calc. Creatinine Clearance 335 mL/min (70-130); Calcium 8.1 mg/dL (7.8-10.44); Carbon Dioxide 32 mmol/L (22-29); Cardiac Risk 3.1 (Less than 4.5); Chloride 100 mmol/L (98-107); Cholesterol 118 mg/dl (< 200 Desired); Glucose 145 mg/dL (70-105); HDL Cholesterol 38 mg/dL (>60 Neg Risk); LDL Cholesterol, Calculated 69 mg/dL; Potassium 3.8 mmol/L (3.5-5.1); Sodium 138 mmol/L (136-145); Triglycerides 57 mg/dL (Less than 150)
[2021-04-23 05:12] LABS: Troponin I 0.019 ng/mL (< 0.028)
[2021-04-23 05:37] LABS: Hemoglobin A1c 11.3 % (4.0-6.0)
[2021-04-23] MEDS ORDERED: Furosemide 40 MG/4 ML VIAL SLOW IVP SCH (06:00)
[2021-04-23] MEDS ORDERED: Magnesium 2 GM/50 ML 2 GM in Premix Bag 1 BAG IVPB SCH (06:00)
[2021-04-23] MEDS ORDERED: Amlodipine 5 MG TAB PO SCH (09:00)
[2021-04-23] MEDS ORDERED: FLU VACC QS2021-22(6MOS UP)/PF 60 MCG/0.5 ML SYRINGE IM ONE (09:00)
[2021-04-23] MEDS ORDERED: Aspirin 81 mg Enteric Coated Tablet PO SCH (09:00)
[2021-04-23 11:39] LABS: SARS-CoV-2 PCR by NAA Not Detected (NotDetected)
[2021-04-23 12:15] VITALS: BP 171/78; TEMP 98.3
[2021-04-23] MEDS ORDERED: Warfarin Sodium 5 MG TAB PO SCH (17:00)
[2021-04-23] MEDS ORDERED: Warfarin Sodium 2 MG TAB PO SCH (17:00)
== END 2021-04-23 12:10 | disposition home or self-care (01) ==
LOC: ERS 12:41 → 2NO 16:28
PROVIDERS: ADMIT Internal Medicine; ATTEND Internal Medicine
DX: I89.0 Lymphedema, not elsewhere classified (principal); I11.0 Hypertensive heart disease with heart failure; I50.9 Heart failure, unspecified; E11.9 Type 2 diabetes mellitus without complications; J45.909 Unspecified asthma, uncomplicated; F17.210 Nicotine dependence, cigarettes, uncomplicated; I08.1 Rheumatic disorders of both mitral and tricuspid valves; E66.01 Morbid (severe) obesity due to excess calories; Z68.43 Body mass index [BMI] 50.0-59.9, adult; Z20.822 Contact with and (suspected) exposure to COVID-19
CPT/HCPCS: 36415; 36416; 71045; 80048; 80053; 80061; 82553; 83036; 83735; 83880; 84443; 84484; 85025; 85610; 93005; 93306; 93970; 96365; 96374; 96375; 96376; G0378; J1815; J1940; J3475; U0003; U0005

== ENCOUNTER 2021-09-21 09:04 | Emergency (ER) | payer SELFPAY ==
[2021-09-21 09:44] LABS: #Eosinphils 0.2 thou/uL (0.0-0.7); #Lymphocytes 1.7 thou/uL (1.20-3.40); #Monocytes 0.9 thou/uL (0.11-0.59); #Neutrophils 7.5 thou/uL (1.40-6.50); %Basophils 0.3 % (0.0-1.0); %Eosinophils 1.8 % (0.0-10.0); %Lymphocytes 16.3 % (21.0-51.0); %Monocytes 8.6 % (0.0-10.0); %Neutrophils 73.1 % (42.0-75.0); Hemoglobin 15.3 g/dL (14.0-18.0); Mean Corpuscular HGB CONC 32.6 g/dL (32.0-36.0); Mean Corpuscular Hemoglobin 29.8 pg (27.0-31.0); Mean Corpuscular Volume 91.3 fL (78.0-98.0); Mean Platelet Volume 6.3 fL (7.4-10.4); Platelet Count 359 thou/uL (130-400); RBC Distribution Width 11.7 % (11.5-14.5); Red Blood Cell (RBC) Count 5.14 mill/uL (4.70-6.10); White Blood Cell (WBC) Count 10.2 thou/uL (4.8-10.8)
[2021-09-21] MEDS ORDERED: Ketorolac Tromethamine 30 MG/ML VIAL ONE (09:48)
[2021-09-21] MEDS ORDERED: Acetaminophen 500 MG TAB ONE (09:56)
[2021-09-21] MEDS ORDERED: Acetaminophen 325 MG TAB ONE (10:00)
[2021-09-21 10:09] LABS: ALT (SGPT) 13 U/L (8-55); AST (SGOT) 12 U/L (5-34); Albumin 3.7 g/dL (3.5-5.0); Alkaline Phosphatase 134 U/L (40-110); Anion Gap 14 mmol/L (10-20); BUN (Urea Nitrogen) 11 mg/dL (8.9-20.6); Bilirubin, Total 0.8 mg/dL (0.2-1.2); Calc. Creatinine Clearance 0 mL/min (70-130); Calcium 9.2 mg/dL (7.8-10.44); Carbon Dioxide 29 mmol/L (22-29); Chloride 96 mmol/L (98-107); Globulin 4.8 g/dL (2.4-3.5); Glucose 211 mg/dL (70-105); Potassium 4.1 mmol/L (3.5-5.1); Protein, Total 8.5 g/dL (6.0-8.3); Sodium 135 mmol/L (136-145)
== END 2021-09-21 11:50 | disposition home or self-care (01) ==
LOC: ERS 09:04
DX: R07.89 Other chest pain (principal); R94.5 Abnormal results of liver function studies; E11.9 Type 2 diabetes mellitus without complications; E78.5 Hyperlipidemia, unspecified; J44.9 Chronic obstructive pulmonary disease, unspecified; Z87.891 Personal history of nicotine dependence; Z79.84 Long term (current) use of oral hypoglycemic drugs; Z79.899 Other long term (current) drug therapy
CPT/HCPCS: 36415; 71045; 80053; 84484; 85025; 93005; 96374; J1885

== ENCOUNTER 2022-05-28 09:15 | Emergency (ER) | payer SELFPAY ==
[2022-05-28 10:23] LABS: #Eosinphils 0.2 thou/uL (0.0-0.7); #Lymphocytes 1.3 thou/uL (1.20-3.40); #Monocytes 0.5 thou/uL (0.11-0.59); #Neutrophils 4.5 thou/uL (1.40-6.50); %Basophils 0.5 % (0.0-1.0); %Eosinophils 2.7 % (0.0-10.0); %Lymphocytes 19.8 % (21.0-51.0); %Monocytes 8.1 % (0.0-10.0); %Neutrophils 68.9 % (42.0-75.0); Hemoglobin 15.1 g/dL (14.0-18.0); Mean Corpuscular HGB CONC 33.1 g/dL (32.0-36.0); Mean Corpuscular Hemoglobin 29.4 pg (27.0-31.0); Mean Corpuscular Volume 88.8 fl (78.0-98.0); Mean Platelet Volume 7.4 fL (7.4-10.4); Platelet Count 281 10x3/uL (130-400); RBC Distribution Width 11.8 % (11.5-14.5); Red Blood Cell (RBC) Count 5.14 mill/uL (4.70-6.10); White Blood Cell (WBC) Count 6.5 10x3/uL (4.8-10.8)
[2022-05-28 10:37] LABS: ALT (SGPT) 18 U/L (8-55); AST (SGOT) 14 U/L (5-34); Albumin 3.3 g/dL (3.5-5.0); Alkaline Phosphatase 131 U/L (40-110); Anion Gap 11 mmol/L (10-20); BUN (Urea Nitrogen) 7 mg/dL (8.9-20.6); Bilirubin, Total 0.6 mg/dL (0.2-1.2); CK (CPK) 52 U/L (30-200); Calc. Creatinine Clearance 0 mL/min (70-130); Calcium 8.8 mg/dL (7.8-10.44); Carbon Dioxide 30 mmol/L (22-29); Chloride 98 mmol/L (98-107); Estimated GFR 111; Globulin 3.7 g/dL (2.4-3.5); Glucose 380 mg/dL (70-105); Magnesium 1.5 mg/dL (1.6-2.6); Potassium 3.8 mmol/L (3.5-5.1); Sodium 135 mmol/L (136-145)
[2022-05-28] MEDS ORDERED: Magnesium 2 GM/50 ML BAG (IN WATER) ONE (11:19)
== END 2022-05-28 13:14 | disposition home or self-care (01) ==
LOC: ERS 09:15
DX: E11.65 Type 2 diabetes mellitus with hyperglycemia (principal); E83.42 Hypomagnesemia; E78.5 Hyperlipidemia, unspecified; J44.9 Chronic obstructive pulmonary disease, unspecified; Z87.891 Personal history of nicotine dependence; Z79.899 Other long term (current) drug therapy; Z79.84 Long term (current) use of oral hypoglycemic drugs
CPT/HCPCS: 36415; 71045; 80053; 82550; 83735; 84443; 84484; 85025; 93005; 96365; J3475

== ENCOUNTER 2022-06-26 13:17 | Emergency (ER) | payer BC, SELFPAY ==
[2022-06-26] MEDS ORDERED: predniSONE 20 MG TAB ONE (16:45)
[2022-06-26 17:10] LABS: SARS-CoV-2 NAA Rapid Test Not Detected (NotDetected)
== END 2022-06-26 19:49 | disposition home or self-care (01) ==
LOC: ERS 13:17
DX: J02.9 Acute pharyngitis, unspecified (principal); E78.5 Hyperlipidemia, unspecified; Z87.891 Personal history of nicotine dependence; Z20.822 Contact with and (suspected) exposure to COVID-19
CPT/HCPCS: 87081; 87430; 99283; J7512

== ENCOUNTER 2022-11-21 10:06 | Emergency (ER) | payer BC | END 2022-11-21 11:34 | disposition home or self-care (01) | LOC: ERS 10:06 | DX: M25.512 Pain in left shoulder (principal); E11.9 Type 2 diabetes mellitus without complications; Z87.891 Personal history of nicotine dependence ==

== ENCOUNTER 2023-04-02 11:59 | Emergency (ER) | payer BC, SELFPAY ==
[2023-04-02 13:49] LABS: SARS-CoV-2 NAA Rapid Test Not Detected (NotDetected)
== END 2023-04-02 14:09 | disposition home or self-care (01) ==
LOC: ERS 11:59
DX: B34.9 Viral infection, unspecified (principal); E11.9 Type 2 diabetes mellitus without complications; Z20.822 Contact with and (suspected) exposure to COVID-19; Z87.891 Personal history of nicotine dependence
CPT/HCPCS: 87081; 87430; 99284

== ENCOUNTER 2023-11-18 20:37 | Emergency (ER) | payer BC, SELFPAY ==
[2023-11-18] MEDS ORDERED: Ketorolac Tromethamine 30 MG (1 mL) VIAL ONE (21:10)
== END 2023-11-18 21:51 | disposition home or self-care (01) ==
LOC: ERS 20:37
DX: S90.31XA Contusion of right foot, initial encounter (principal); E11.9 Type 2 diabetes mellitus without complications; Z87.891 Personal history of nicotine dependence; W20.8XXA Other cause of strike by thrown, projected or falling object, initial encounter
CPT/HCPCS: 96372; J1885

== ENCOUNTER 2024-04-09 14:46 | Emergency (ER) | payer BC, SELFPAY ==
[2024-04-09] MEDS ORDERED: Ketorolac Tromethamine 30 MG (1 mL) VIAL ONE (19:57)
== END 2024-04-09 20:43 | disposition home or self-care (01) ==
LOC: ERS 14:46
DX: S46.912A Strain of unspecified muscle, fascia and tendon at shoulder and upper arm level, left arm, initial encounter (principal); E11.9 Type 2 diabetes mellitus without complications; Z87.891 Personal history of nicotine dependence; X50.0XXA Overexertion from strenuous movement or load, initial encounter
CPT/HCPCS: 96372; 99283; J1885

== ENCOUNTER 2024-04-18 17:27 | Emergency (ER) | payer SELFPAY ==
[2024-04-18 18:20] LABS: #Basophils 0.04 10x3/uL (0.0-0.2); %Basophils 0.4 % (0.0-1.0); %Eosinophils 1.2 % (0.0-10.0); %Lymphocytes 9.2 % (21.0-51.0); %Monocytes 7.6 % (0.0-10.0); %Neutrophils 81.3 % (42.0-75.0); Hematocrit 46.4 % (42.0-52.0); Hemoglobin 15.1 g/dL (14.0-18.0); Mean Corpuscular HGB CONC 32.5 g/dL (32.0-36.0); Mean Corpuscular Hemoglobin 27.9 pg (27.0-31.0); Mean Corpuscular Volume 85.6 fL (78.0-98.0); Mean Platelet Volume 8.9 fL (7.4-10.4); Platelet Count 244 10x3/uL (130-400); Red Blood Cell (RBC) Count 5.42 mill/uL (4.70-6.10)
[2024-04-18 18:41] LABS: ALT (SGPT) 13 U/L (8-55); AST (SGOT) 15 U/L (5-34); Albumin 2.8 g/dL (3.5-5.0); Alkaline Phosphatase 76 U/L (40-110); Anion Gap 11 mmol/L (10-20); BUN (Urea Nitrogen) 6 mg/dL (8.9-20.6); Bilirubin, Total 0.6 mg/dL (0.2-1.2); Calc. Creatinine Clearance 0 mL/min (70-130); Calcium 8.3 mg/dL (7.8-10.44); Carbon Dioxide 28 mmol/L (22-29); Chloride 101 mmol/L (98-107); Estimated GFR 116; Globulin 3.6 g/dL (2.4-3.5); Glucose 173 mg/dL (70-105); Lipase 14 U/L (8-78); Protein, Total 6.4 g/dL (6.0-8.3); Sodium 136 mmol/L (136-145)
[2024-04-18 18:48] LABS: Troponin I Less than 0.010 ng/mL (< 0.028)
[2024-04-18] MEDS ORDERED: Ketorolac Tromethamine 30 MG (1 mL) VIAL ONE (19:05)
== END 2024-04-18 19:00 | disposition home or self-care (01) ==
LOC: ERS 17:27
DX: R06.02 Shortness of breath (principal); E11.9 Type 2 diabetes mellitus without complications; Z87.891 Personal history of nicotine dependence
CPT/HCPCS: 36415; 71045; 80053; 83690; 83880; 84484; 85025; 87428; 93005; 96372; J1885

== ENCOUNTER 2024-05-13 17:23 | Emergency (ER) | payer OTHER, SELFPAY ==
[2024-05-13 19:07] LABS: #Basophils Less than 0.03 10x3/uL (0.0-0.2); %Basophils 0.3 % (0.0-1.0); %Eosinophils 2.9 % (0.0-10.0); %Lymphocytes 16.6 % (21.0-51.0); %Monocytes 10.1 % (0.0-10.0); %Neutrophils 69.9 % (42.0-75.0); Hematocrit 47.1 % (42.0-52.0); Hemoglobin 15.2 g/dL (14.0-18.0); Mean Corpuscular HGB CONC 32.3 g/dL (32.0-36.0); Mean Corpuscular Hemoglobin 27.2 pg (27.0-31.0); Mean Corpuscular Volume 84.4 fL (78.0-98.0); Mean Platelet Volume 8.7 fL (7.4-10.4); Platelet Count 291 10x3/uL (130-400); RBC Distribution Width 12.8 % (11.5-14.5); Red Blood Cell (RBC) Count 5.58 mill/uL (4.70-6.10)
[2024-05-13 19:17] LABS: ALT (SGPT) 14 U/L (8-55); AST (SGOT) 18 U/L (5-34); Albumin 2.9 g/dL (3.5-5.0); Alkaline Phosphatase 94 U/L (40-110); Anion Gap 10 mmol/L (10-20); BUN (Urea Nitrogen) 7 mg/dL (8.9-20.6); Bilirubin, Total 0.6 mg/dL (0.2-1.2); Calc. Creatinine Clearance 0 mL/min (70-130); Calcium 8.1 mg/dL (7.8-10.44); Carbon Dioxide 33 mmol/L (22-29); Chloride 103 mmol/L (98-107); Estimated GFR 111; Globulin 3.8 g/dL (2.4-3.5); Glucose 209 mg/dL (70-105); Potassium 4.4 mmol/L (3.5-5.1); Protein, Total 6.7 g/dL (6.0-8.3); Sodium 142 mmol/L (136-145)
[2024-05-13] MEDS ORDERED: Ketorolac Tromethamine 30 MG (1 mL) VIAL ONE (20:06)
== END 2024-05-13 20:25 | disposition home or self-care (01) ==
LOC: ERS 17:23
DX: M79.89 Other specified soft tissue disorders (principal); E11.9 Type 2 diabetes mellitus without complications; Z87.891 Personal history of nicotine dependence
CPT/HCPCS: 36415; 80053; 83880; 85025; 93970; 96372; J1885

== ENCOUNTER 2025-02-07 20:17 | Emergency (ER) | payer OTHER ==
[2025-02-07] MEDS ORDERED: Ketorolac Tromethamine 30 MG (1 mL) VIAL ONE (22:45)
== END 2025-02-07 22:55 | disposition home or self-care (01) ==
LOC: ERS 20:17
DX: M54.12 Radiculopathy, cervical region (principal); E11.9 Type 2 diabetes mellitus without complications; E66.01 Morbid (severe) obesity due to excess calories; Z68.41 Body mass index [BMI] 40.0-44.9, adult; Z87.891 Personal history of nicotine dependence
CPT/HCPCS: 96372; 99284; J1885

== ENCOUNTER 2025-02-27 08:28 | Emergency (ER) | payer OTHER | END 2025-02-27 10:03 | disposition home or self-care (01) | LOC: ERS 08:28 | DX: B34.9 Viral infection, unspecified (principal); E11.9 Type 2 diabetes mellitus without complications; E66.01 Morbid (severe) obesity due to excess calories | CPT/HCPCS: 71045; 87081; 87428; 87430; 96372; J1100 ==

== ENCOUNTER 2025-03-28 16:00 | Emergency (ER) | payer OTHER | END 2025-03-28 18:34 | disposition home or self-care (01) | LOC: ERS 16:00 | DX: J18.9 Pneumonia, unspecified organism (principal); R60.9 Edema, unspecified; E11.9 Type 2 diabetes mellitus without complications; E66.01 Morbid (severe) obesity due to excess calories; Z79.84 Long term (current) use of oral hypoglycemic drugs | CPT/HCPCS: 71045; 87428; 93005 ==